=== PATIENT | male | born 1985 | race Caucasian/White ===

== ENCOUNTER 2020-08-04 17:41 | Emergency (ER) | payer OTHER ==
[~2020-08-04] VITALS: Ht 185.4 cm; Wt 75.3 kg
[2020-08-04 18:18] LABS: ABSOLUTE BASOPHILS 0.1 thou/uL (0.0-0.2); ABSOLUTE EOSINOPHILS 0.3 thou/uL (0.0-0.7); ABSOLUTE LYMPHOCYTES 2.1 thou/uL (0.8-5.3); ABSOLUTE MONOCYTES 0.7 thou/uL (0.0-1.2); ABSOLUTE NEUTROPHILS 3.9 thou/uL (1.6-8.1); BASOPHILS 1.2 %; EOSINOPHILS 4.1 %; HEMATOCRIT 45.9 % (42.0-52.0); HEMOGLOBIN 16.1 gm/dL (14.0-18.0); LYMPHOCYTES 29.5 %; MCH 30.6 pg (26.0-34.0); MCV 87.3 fL (80.0-100.0); MONOCYTES 9.5 %; MPV 8.2 fl. (7.2-11.1); NUCLEATED RBCS 0 /100WBC; PLATELET COUNT* 232 thou/uL (150-400); POLYS 55.7 %; RBC 5.26 mil/uL (4.50-6.00); RDW-CV 12.7 % (10.5-14.5)
[2020-08-04 18:25] LABS: CALCIUM 10.1 mg/dL (8.5-10.1); CREATININE 0.9 mg/dL (0.6-1.3)
[2020-08-04 18:36] LABS: ALBUMIN 4.5 g/dL (3.4-5.0); TOTAL BILIRUBIN 0.8 mg/dL (<0.1-1.0); TOTAL PROTEIN 8.5 g/dL (6.4-8.2)
[2020-08-04 18:45] VITALS: BP 120/82
--- NOTE | 2020-08-05 11:15 | EKG ---
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[place] : 1985 Requested By: Heladio Ch Order Number: [id number] MD: Daniel Parry Measurements Intervals [place] Rate: 69 P: 68 NV: 172 QRS: 58 QRSD: 83 T: 49 QT: 361 QTc: 387 Interpretive Statements Sinus rhythm 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
== END 2020-08-04 18:45 | disposition home or self-care (01) ==
LOC: M.ERS 17:41
PROVIDERS: Family Medicine
DX: R06.00 Dyspnea, unspecified (principal); R07.89 Other chest pain; R51.9 Headache, unspecified; Z86.16 Personal history of COVID-19